=== PATIENT | female | born 2005 | race African-American/Black ===

== ENCOUNTER 2025-01-24 09:36 | Emergency (ER) | payer MEDICAID ==
[~2025-01-24] VITALS: Ht 157.5 cm; Wt 72.9 kg
[2025-01-24 10:18] LABS: Hematocrit 38.1 % (36.0-46.0); Hemoglobin 12.8 g/dL (12.2-16.2); Mean Corpuscular Hemoglobin 29.3 pg (28.0-32.0); Mean Corpuscular Volume 87.5 fL (80.0-100.0); Nucleated Red Blood Cells % 0.0 %
[2025-01-24 10:39] LABS: Urine Protein, UAD Negative (Negative)
--- NOTE | 2025-01-24 10:46 | ED.PDOC ---
UI DESIGNER HPI Comments A 19 YEAR OLD FEMALE PRESENTS TO THE ED WITH COMPLAINT OF VAGINAL BLEEDING AND PELVIC CRAMPING. PATIENT STATES HE HAS BEEN EXPERIENCING VAGINAL BLEEDING AND PELVIC CRAMPING TODAY DUE TO STARTING HER MENSTRUAL PERIOD. PATIENT REPORTS HER LAST MENSTRUAL PERIOD WAS 12/21/2024, BUT NOTES HER CURRENT BLEEDING IS HEAVIER THAN USUAL, PROMPTING HER TO COME TO THE ED FOR EVALUATION. PATIENT ALSO NOTES SHE IS NOT SURE IF SHE IS CURRENTLY . PATIENT DENIES DYSURIA, HEMATURIA, VAGINAL DISCHARGE, FLANK PAIN, FEVER, CHILLS, SHORTNESS OF BREATH, CHEST PAIN, ABDOMINAL PAIN, NAUSEA, VOMITING, HEADACHE, OR OTHER COMPLAINTS. NO OTHER SYMPTOMS OR MODIFYING FACTORS AT THIS TIME. PATIENT IS ALERT, ORIENTED X 4, AND HAS STEADY GAIT. Chief Complaint: Vaginal Bleed Time Seen by MD: 09:41 Reviewed Notes: Nurses Notes, Medications, Allergies Allergies: Coded Allergies: NO KNOWN ALLERGIES (Unverified , 04/09/14) Information Source: Patient Mode of Arrival: Ambulatory Timing: Hours Prehospital treatment: None Severity: Mild Vaginal Discharge: None Vaginal Lesions: None Bleeding Quality: Bright Red Vaginal Mass: None Onset Of Mass/Bleeding: Spontaneous Sexual Activity: Neither Last Consensual [place]: Unknown Control: None Blood Type: Unknown Symptoms of Possible : None Associated Signs and Symptoms: Vaginal Bleeding Past Medical History PAST MEDICAL HISTORY: Denies Surgical History: Denies all surgeries BINDER CHAINSTITCH History: No Pertinent BINDER CHAINSTITCH History Family History Family History: Reviewed,noncontributory to illness Social History Smoker: Non-Smoker Alcohol: Denies ETOH Use Drugs: Denies Drug Use Lives In: Home Constitutional: denies: chills, diaphoresis, fatigue, fever, malaise, sweats, weakness, others EENTM: denies: blurred vision, double vision, ear bleeding, ear discharge, ear drainage, ear pain, ear ringing, eye pain, eye redness, hearing loss, mouth pain, mouth swelling, nasal discharge, nose bleeding, nose congestion, nose pain, photophobia, tearing, throat pain, throat swelling, voice changes, others Respiratory: denies: cough, hemoptysis, orthopnea, SOB at rest, shortness of breath, SOB with excertion, stridor, wheezing, others Cardiovascular: denies: chest pain, dizzy spells, diaphoresis, Dyspnea on exertion, edema, irregular heart beat, left arm pain, lightheadedness, palpitations, PND, syncope, others Gastrointestinal: denies: abdomen distended, abdominal pain, blood streaked bowels, constipated, diarrhea, dysphagia, difficulty swallowing, hematemesis, melena, nausea, poor appetite, poor fluid intake, rectal bleeding, rectal pain, vomiting, others Genitourinary: reports: abnormal vagina bleeding, pain (PELVIC CRAMPING); denies: burning, dyspareunia, dysuria, flank pain, frequency, hematuria, incontinence, , vagina discharge, urgency, others Neurological: denies: dizziness, fainting, headache, left sided numbness, left sided weakness, numbness, paresthesia, pre-existing deficit, right sided numbness, right sided weakness, seizure, speech problems, tingling, tremors, weakness, others Musculoskeletal: denies: back pain, gout, joint pain, joint swelling, muscle pain, muscle stiffness, neck pain, others Integumetry: denies: bruises, change in color, change in hair/nails, dryness, laceration, lesions, lumps, rash, wounds, others Allergic/Immunocompromised: denies: Difficulty Healing, Frequent Infections, Hives, Itching, others Hematologic/Lymphatic: denies: anemia, blood clots, easy bleeding, easy bruising, swollen glands, others Endocrine: denies: excessive hunger, excessive sweating, excessive thirst, excessive urination, flushing, intolerance to cold, intolerance to heat, unexplained weight gain, unexplained weight loss, others Psychiatric: denies: anxiety, bipolar disorder, depression, hopeless, panic disorder, schizophrenia, sleepless, suicidal, others All Other Systems: Reviewed and Negative Physical Exam General Appearance: No Apparent Distress, Normal HEENT: Normal ENT Inspection, PERRL/EOMI, Pharynx Normal, TMs Normal Neck: Full Range of Motion, Non-Tender, Normal, Normal Inspection Respiratory: Chest Non-Tender, Lungs Clear, No Accessory Muscle Use, No Respiratory Distress, Normal Breath Sounds Cardiovascular: No Edema, No JVD, No Murmur, No Gallop, Normal Peripheral Pulses, Regular Rate/Rhythm Breast Exam: Deferred Gastrointestinal: No Organomegaly, Non Tender, No Pulsatile Mass, Normal Bowel Sounds, Soft Genitalia: Deferred Pelvic: Normal External Exam, Vaginal Bleeding (MENSTRUAL BLEEDING, NO BLOOD CLOTS. ) Rectal: Deferred Extremities: No calf tenderness, Normal capillary refill, Normal inspection, Normal range of motion, Non-tender, No pedal edema Musculoskeletal : Apperance: Normal Neurologic: Alert, penal officer II-XII nml as Tested, No Motor Deficits, Normal Affect, Normal Mood, No Sensory Deficits Cerebellar Function: Normal Reflexes: Normal Skin: Dry, Normal Color, Warm Peripheral Pulses: 2+ carotid (R), 2+ carotid (L) Lymphatic: No Adenopathy Was a procedure done? Was a procedure done?: No Differential Diagnosis (BINDER CHAINSTITCH) Vaginal Bleeding: Blood Loss Anemia, Dysmenorrhea, Menorrhagia, Menstrual Bleeding, UTI, Vaginitis Mass / Lesion: N/A Vaginal Discharge: N/A X-Ray, Labs, Meds, VS Vital Signs Date Time Temp Pulse Resp B/P (MAP) Pulse Ox O2 Delivery O2 Flow Rate FiO2 01/24/25 09:39 97.7 107 16 157/118 96 97.7 Lab Test 01/24/25 10:09 01/24/25 09:55 Range/Units Urine Color Light-yellow Yellow Urine Clarity Hazy H Clear Urine pH 6.5 5.0-9.0 Urine Specific [place] 1.015 1.001-1.035 Urine Protein Negative Negative Urine Ketones Negative Negative Urine Blood 3+ H Negative /uL Urine Nitrite Negative Negative Urine Bilirubin Negative Negative Urine Urobilinogen Normal Negative mg/dL Urine Leukocyte Esterase Negative Negative /uL Urine RBC 286 0 - 4 /hpf Urine Microscopic WBC 3 0-5 /HPF Urine Squamous Epithelial Cells Few <5 /hpf Urine Bacteria Few H None Seen /hpf Urine Glucose Normal Normal mg/dL White Blood Count 8.1 4.4-10.8 10^3/uL Red Blood Count 4.35 4.0-5.20 10^6/uL Hemoglobin 12.8 12.2-16.2 g/dL Hematocrit 38.1 36.0-46.0 % Mean Corpuscular Volume 87.5 80.0-100.0 fL Mean Corpuscular Hemoglobin 29.3 28.0-32.0 pg Mean Corpuscular Hemoglobin Concent 33.5 32.0-36.0 g/dL Red Cell Distribution Width 15.6 H 11.8-14.3 % Platelet Count 347 140-450 10^3/uL Mean Platelet Volume 7.7 6.9-10.8 fL Neutrophils (%) (Auto) 70.8 37.0-80.0 % Lymphocytes (%) (Auto) 21.7 10.0-50.0 % Monocytes (%) (Auto) 5.9 0.0-12.0 % Eosinophils (%) (Auto) 1.2 0.0-7.0 % Basophils (%) (Auto) 0.4 0.0-2.0 % Neutrophils # (Auto) 5.7 1.6-8.6 10 ^3/uL Lymphocytes # (Auto) 1.8 0.4-5.4 10 ^3/uL Monocytes # (Auto) 0.5 0-1.3 10 ^3/uL Eosinophils # (Auto) 0.1 0-0.8 10 ^3/uL Basophils # (Auto) 0 0-0.2 10 ^3/uL Nucleated Red Blood Cells 0.0 % Beta HCG, Quantitative < 1.5 L 1.5-4.2 mIU/mL X-Ray, Labs, Meds, VS Comment EXTERNAL MEDICAL RECORDS REVIEWED: [NONE] INDEPENDENT HISTORIANS: [NONE] SOCIAL DETERMINANTS OF HEALTH: [NONE] LABS ORDERED: CBC, UA, BETA HCG QUANT REVIEWED AND INTERPRETED RESULTS: BLOOD 3+ IMAGING ORDERED: NONE TREATMENTS ORDERED: PROCEDURES PERFORMED: NONE CRITICAL CARE TIME: NONE I HAVE DISCUSSED THE PATIENT WITH THE ATTENDING PHYSICIAN DR. WILSNO AND HE AGREES WITH THE PATIENT'S PLAN OF CARE AND DISPOSITION. BASED ON HISTORY OF PRESENT ILLNESS, AND PHYSICAL EXAM, PATIENT WILL BE DISCHARGED HOME. DISCUSSED PLAN FOR DISCHARGE HOME WITH RX [NAPROXEN 500MG]. MEDICATION WARNINGS GIVEN. SHARED DECISION MAKING: DISCUSSED WITH PATIENT THAT THEIR WORKUP WAS NORMAL. PATIENT INSTRUCTED TO FOLLOW UP WITH PRIMARY CARE PROVIDER IN 1-2 DAYS FOR RE- EVALUATION OF SYMPTOMS. PATIENT VERBALIZES UNDERSTANDING TO RETURN TO ED FOR NEW OR WORSENING SYMPTOMS OR IF FOLLOW UP WITH PCP CANNOT BE OBTAINED. PATIENT FEELS COMFORTABLE GOING HOME AT THIS TIME. ALL QUESTIONS ADDRESSED AT TIME OF DISCHA RGE. Time of 1ST Reevaluation: 11:00 Reevaluation 1ST: Improved Patient Education/Counseling: Diagnosis, Treatment, Need For Follow Up Family Education/Counseling: Diagnosis, Treatment, Need For Follow Up Medical Screening: No EMC Exist At This Time Departure 1 Departure Time of Disposition: 11:00 Impression: Primary Impression: Menstrual period late Additional Impression: Negative test Disposition: 01 HOME / SELF CARE / HOMELESS Condition: Stable Additional Instructions: FOLLOW-UP WITH PCP IN 1 TO 2 DAYS. TAKE MEDICATIONS PRESCRIBED. RETURN TO ED FOR ANY NEW OR WORSENING SYMPTOMS. e-Prescriptions Naproxen (Naproxen) 500 Mg Tab 500 MG PO BID, #30 TAB Prov: CHECO PONCE 01/24/25 Discharged With: Self Critical Care Note Critical Care Time?: No Stability Stability form required: No I personally scribed for CHECO PONCE ([email or web address]) on 01/24/25 at 10:46. Electronically submitted by Stanley Al ([email or web address]). HCECO PONCE Jan 24, 2025 10:46
[2025-01-24] MEDS ORDERED: NAPR-746 PO (10:57)
[2025-01-24 11:04] VITALS: BP 125/84; PULSE 82; RESP 19; TEMP 98.3; O2SAT 100
== END 2025-01-24 11:07 | disposition home or self-care (01) ==
LOC: ER 09:36
DX: N92.6 Irregular menstruation, unspecified (principal); R10.20 Pelvic and perineal pain unspecified side; Z32.02 Encounter for pregnancy test, result negative
CPT/HCPCS: 36415; 81001; 84702; 85025